=== PATIENT | male | born 1950 | race Caucasian/White ===

== ENCOUNTER 2018-08-31 11:30 | Outpatient (REF) | payer MEDICARE, SELFPAY ==
[2018-08-31 14:53] LABS: COMMENT (LAB VIEW ONLY) 100.55 mg/dL; Microalb ug/mg Crea 243.2 ug/mg Cr
== END 2018-08-31 11:50 ==
LOC: NCHCN 11:30
PROVIDERS: PCP Family Medicine; Visit Provider Family Medicine
DX: E11.8 Type 2 diabetes mellitus with unspecified complications (principal)
CPT/HCPCS: 82043; 82570

== ENCOUNTER 2019-04-28 00:17 | Outpatient (CLI) | payer MEDICARE, MEDICAID, SELFPAY ==
--- NOTE | 2019-04-28 15:33 | DI.US_ITS ---
SYMPTOM/DIAGNOSIS: SCREEN FOR CONDITION, Z13.9, DIZZINESS R42, NECK PAIN M54.2 CAROTID ULTRASOUND: Mild plaque is noted in the carotid bulb bilaterally and in the right internal carotid artery proximally. There is bilateral antegrade flow in the vertebrals. Velocity measurements suggest no evidence of significant carotid stenosis.
== END 2019-04-28 00:37 ==
PROVIDERS: PCP Family Medicine; Visit Provider Family Medicine
DX: R42 Dizziness and giddiness (principal); M54.2 Cervicalgia
CPT/HCPCS: 93880

== ENCOUNTER 2019-07-16 15:36 | Outpatient (REF) | payer MEDICARE, MEDICAID, SELFPAY ==
[2019-07-16 19:02] LABS: Anion Gap 9.9 mmol/L (3-11); BUN 16 mg/dL (7-18); CO2 26.1 mmol/L (21.0-32.0); CREATININE 0.95 mg/dL (0.70-1.30); Calcium 9.1 mg/dL (8.5-10.1); Chloride 105 mmol/L (98-107); Glucose 137 mg/dL (70-100); Magnesium 1.9 mg/dL (1.8-2.4); Sodium 141 mmol/L (136-145)
== END 2019-07-16 15:56 ==
LOC: NCHCN 15:36
PROVIDERS: PCP Family Medicine; Visit Provider Family Medicine
DX: I10 Essential (primary) hypertension (principal); E78.5 Hyperlipidemia, unspecified
CPT/HCPCS: 80048; 83735

== ENCOUNTER 2020-09-29 22:38 | Outpatient (REF) | payer MEDICARE, MEDICAID, SELFPAY ==
[2020-09-29 21:09] LABS: BUN 15 mg/dL (7-18); CREATININE 1.04 mg/dL (0.70-1.30); Calcium 9.6 mg/dL (8.5-10.1); Chloride 102 mmol/L (98-107); Glucose 140 mg/dL (74-106); Potassium 4.3 mmol/L (3.5-5.1); Sodium 140 mmol/L (136-145)
[2020-09-29 21:58] LABS: Hemoglobin A1C 8.5 % (<5.7)
== END 2020-09-29 22:58 ==
LOC: NCHCN 22:38
PROVIDERS: PCP Family Medicine; Visit Provider Family Medicine
DX: E11.9 Type 2 diabetes mellitus without complications (principal); I10 Essential (primary) hypertension
CPT/HCPCS: 80048; 83036

== ENCOUNTER 2021-05-07 01:36 | Outpatient (CLI) | payer MEDICARE, MEDICAID, SELFPAY ==
--- NOTE | 2021-05-07 14:52 | DI.MRI_ITS ---
Exam(s) MR LUMBAR SPINE WO EXAM: MR LUMBAR SPINE WO CLINICAL HISTORY: NEUROGENIC CLAUDICATION,M48.062,DIABETES,H/O CAUDA EQUINA SYNDROME,WORSENIN. TECHNIQUE: Multiplanar multisequence MRI of the Lumbar spine was performed. Compared to prior MRI sc an February 2013. Plain films April 2013 were also reviewed. COMPARISON: MR OUTSIDE CD - MR NEURO from 02/16/2013 MR OUTSIDE CD - MR NEURO from 02/16/2013 CR L_SPINE 4 VIEWS from 05/03/2013 CR L_SPINE 4 VIEWS from 05/03/2013 FINDINGS: Incidentally noted is a cyst off the medial cortex of the left kidney which measures 3.2 by 2.9 by 2. 8 cm Conus medullaris is at normal level. There is no evidence of conus mass nor subjacent clumping of in trathecal nerve roots to suggest arachnoiditis. However, there is severe spinal canal stenosis at L3 -4 level (see below). The distal thecal sac appears unremarkable.There is no evidence of Tarlov intr asacral cysts nor other significant findings within the sacral canal Bones:There is now severe edema throughout both the L3 and L4 vertebral bodies and what appears to be a nondisplaced horizontal fracture L3 vertebral body and multiple Schmorl's node invagination is in superior endplate of L4 and inferior endplate of L3. With respect to the individual levels... T12-L1: Normal disc height and signal. Anterior osseous lipping mild annular bulging. No prominent canal stenosis.. No significant foraminal stenosis. L1-2: Normal disc height. No significant disc herniation. No central canal stenosis. No foraminal stenosis. No significant facet arthropathy. L2-3: Normal disc height and signal. Broad annular bulging which flattens the anterior aspect of the shobha sac resulting in mild-moderate central spinal canal stenosis. Disc bulging extends into the exit ing left neural foramen but both neural foramen are widely patent due lack of significant disc height loss. There is also no significant facet arthropathy.. L3-4: Significant disc height loss. Modic type 1 extensive edema in both L2 and L3 vertebral bodies. Suggestion nondisplaced transverse fracture at the mid level of L3 vertebral body. Posteriorly th ere is broad annular bulging. There is severe central spinal canal stenosis at this level due to jose rt AP dimensions pedicles, broad annular bulging, and moderate degenerative changes in the facet join ts. Mild bilateral foraminal stenosis L4-5: Moderate-advanced disc height loss again noted.. Previous decompression surgery at this level. There is no disc herniation at this level. Central canal dimensions are with thin lower normal goodman its. Significant degenerative changes in the facet joints. However, no significant foraminal stenos is. L5-S1: Disc height loss at this level more prominent on the left side. There is mild annular bulgin g without a prominent disc protrusion. Mild central canal stenosis. There is moderate bilateral for aminal stenosis which is mostly related to short AP dimensions the pedicles and some degenerative fac et joint changes. There is no listhesis at level. Soft tissues: Cyst off the medial cortex of the left kidney. IMPRESSION: 1. Multilevel findings as described above. However, when compared to the prior MRI scan of February 3 the most significant new findings are at L3-4 level where there is advanced disc space narrowing an d prominent Modic type 1 sub endplate marrow edema changes both vertebral bodies. There is suggestio n of fracture a transverse fracture line in mid L3 level and Schmorl's node invagination is a on both sides of this disc space. There is severe central spinal canal stenosis at this level due to short AP dimensions of the pedicle s, broad annular bulging and degenerative changes in the facet joints. There also mild-moderate narr owing of both exiting neural foramina at this level. 2. Other level findings as described above. DATA REPOSITORY:
== END 2021-05-07 01:56 ==
PROVIDERS: PCP Family Medicine; Visit Provider Family Medicine
DX: M47.816 Spondylosis without myelopathy or radiculopathy, lumbar region (principal); M48.062 Spinal stenosis, lumbar region with neurogenic claudication; M51.26 Other intervertebral disc displacement, lumbar region; E11.9 Type 2 diabetes mellitus without complications; Z86.69 Personal history of other diseases of the nervous system and sense organs
CPT/HCPCS: 72148

== ENCOUNTER 2021-08-23 01:43 | Outpatient (CLI) | payer MEDICARE, MEDICAID, SELFPAY ==
--- NOTE | 2021-08-23 13:55 | DI.US_ITS ---
APPROVED REPORT EXAM: Comprehensive 2D, Doppler, and color-flow Echocardiogram Patient Location: Out-Patient Garment Supervisor: Lisandra Meza RDCS (AE) Indications: Dyspnea on exertion, Murmur, Diabetes Other Information Study Quality: Good Conclusion Normal left ventricular wall thickness and chamber size. Estimated ejection fraction is 60 to 65%. Wall motion is normal Normal right ventricular size and systolic function Both atria are normal in size Aortic valve is sclerotic and trileaflet without stenosis. There is trace aortic regurgitation Normal mitral valve with trace to mild regurgitation Normal tricuspid valve with trace to mild regurgitation. Estimated right ventricular systolic pressu re is 30 mmHg Mildly dilated ascending aorta measuring 3.52 cm Wall motion Left Ventricle The left ventricle is normal size. The left ventricular systolic function is normal. The left ventric ular ejection fraction is within the normal range. There is normal left ventricular wall thickness. T here is normal LV segmental wall motion. There is no ventricular septal defect visualized. LVEF is 60 -65%. Right Ventricle The right ventricle is normal size. The right ventricular systolic function is normal. The RVSP is 30 .2 mmHg. Atria The left atrium size is normal. The right atrium size is normal. The interatrial septum is intact wit h no evidence for an atrial septal defect. Aortic Valve Aortic valve is calcified. Aortic valve is trileaflet. No hemodynamically significant valvular aortic stenosis. Trace aortic regurgitation. Mitral Valve The mitral valve is normal in structure. No evidence of mitral valve stenosis. Trace to mild mitral r egurgitation. Tricuspid Valve The tricuspid valve is normal in structure. There is no tricuspid valve stenosis. Trace to mild tricu spid regurgitation. Pulmonic Valve The pulmonary valve is normal in structure. There is no pulmonic valvular stenosis. Trace pulmonic re gurgitation. Great Vessels The aortic root is normal in size. The ascending aorta is mildly dilated.3.52 cm Aortic arch is ziggy l in caliber. IVC is normal in size and collapses >50% with inspiration. Pericardium There is no pericardial effusion. 2D Dimensions IVSD d PLAX 1.02 cm M: 0.6-1.2 LV Vol A2C d MOD 125.0 mL LVPW d PLAX 1.03 cm M: 0.6 - 1.2 LV Vol A4C d MOD 115.8 mL LVID d PLAX 4.39 cm M: 4.2 - 5.8 LA vol/ BSA A2C s A-L 22.5 mL/m2 LVDs 2.95 cm M: 2.5 - 4.0 LA vol/ BSA A4C s A-L 22.3 mL/m2 Ao Root d 3.46 cm M: 3.1 - 3.7 LA Vol/ BSA Biplane s A-L 22.5 mL/m2 RA Area A4C 13.08 cm2 LA Area A4C s MOD 17.12 cm2 RA Vol/ BSA A4C s A-L 14.6 mL/m2 LA Area A2C s MOD 17.28 cm2 Ao Asc Diam d 3.52 cm M: 2.6 - 3.4 LV EF A4C MOD 58.0 % LV EF Teichholz 61.4 % LV EF A2C MOD 61.8 % LVEF (Rinaldi's) 60.74 % M: 52 - 72 LV EF Biplane MOD 60.7 % LV Volume 91.46 mL M: 62 - 150 SV 74.58 mL LV Volume Index 44.83 mL/m2 M: 34 - 74 SV Index 36.52 mL/m2 LV Vol Biplane MOD 122.8 mL FS 32.75 % M-Mode TAPSE 2.69 cm (M/F) >1.7 LV Diastology MV E' medial 0.125 (>0.07 m/s) E/A Ratio 0.9 LV E/e MED 7.20 (<14) MV E Vmax 0.90 (0.4-1.3 m/s) MV E' lateral 0.121 (>0.1 m/s) MV A Vmax 0.95 (0.4-1.3 m/s) LV E/e LAT 7.40 (<14) MV E/A Ratio 0.91 MV E/E' medial 7.23 MV E/E' lateral 7.45 Aortic Valve LVOT Area 3.76 cm2 AoV Area Vmax 2.40 cm2 LVOT Vmax 1.31 m/s AoV Area/ BSA (Vmax) 1.17 cm2/m2 LVOT Mean Jonathan. 0.77 m/s LEONARDO Mean Jonathan. 2.03 cm2 LVOT Peak Grad 6.9 mmHg LEONARDO Mean Jonathan. Index 0.99 cm2/m2 LVOT Mean Grad 3.0 mmHg LVOT VTI 0.283 m LVOT Diam s 2.15 cm AoV Vmax 2.06 m/s Velocity Ratio 0.63 AoV Mean Jonathan. 1.43 m/s AoV Peak Grad 17.0 mmHg LVOT SV 106.54 mL AoV Mean Grad 9.2 mmHg AoV VTI 0.426 m AoV Area VTI 2.50 cm2 AoV Area/ BSA (VTI) 1.22 cm/m2 Mitral Valve MV DT 220 (160-240 msec) MV PHT 64 msec MV Area PHT 3.45 cm2 MV VTI 0.350 m MV Area VTI 3.05 (4.0-6.0 cm2) Pulmonary Valve PV Vmax 1.38 (0.5-1.5 m/s) RVOT Peak Gr. 2.95 mmHg PV Peak Grad 7.6 mmHg RVOT Mean Gr. 1.50 mmHg PV Mean Grad 3.9 mmHg RVOT VTI 0.202 m PV VTI 0.291 m RVOT Vmax 0.86 m/s Tricuspid Valve TR Peak Grad 27.1 mmHg TR Vmax 2.61 m/s RA Pressure 3.00 mmHg RVSP (TR) 30.2 mmHg
== END 2021-08-23 02:03 ==
PROVIDERS: PCP Family Medicine; Visit Provider Family Medicine
DX: R06.09 Other forms of dyspnea (principal); R01.1 Cardiac murmur, unspecified; E11.9 Type 2 diabetes mellitus without complications; I08.1 Rheumatic disorders of both mitral and tricuspid valves; I77.810 Thoracic aortic ectasia
CPT/HCPCS: 93306

== ENCOUNTER 2021-12-28 17:47 | Outpatient (REF) | payer MEDICARE, MEDICAID, SELFPAY ==
[2021-12-28 20:28] LABS: Anion Gap 10.7 mmol/L (3-11); BUN 21 mg/dL (7-18); CO2 25.3 mmol/L (21.0-32.0); Calcium 9.5 mg/dL (8.5-10.1); Calculated LDL 127 mg/dL (<100); Chloride 103 mmol/L (98-107); Cholesterol 211 mg/dL (<200); Glucose 133 mg/dL (74-106); HDL Cholesterol 51 mg/dL (40-60); Magnesium 1.8 mg/dL (1.8-2.4); Sodium 139 mmol/L (136-145); Triglyceride 165 mg/dL (<150)
== END 2021-12-28 17:48 | disposition home or self-care (01) ==
LOC: LBN 17:47
PROVIDERS: PCP Family Medicine; Visit Provider Family Medicine
DX: I10 Essential (primary) hypertension (principal); E83.42 Hypomagnesemia; E78.5 Hyperlipidemia, unspecified
CPT/HCPCS: 80048; 80061; 83735

== ENCOUNTER → 2022-01-17 12:59 | Outpatient (BNVA) | payer MEDICARE, MEDICAID, SELFPAY | PROVIDERS: PCP Family Medicine; Referring Provider Nurse Practitioner; Visit Provider Nurse Practitioner Adult Health | DX: R41.3 Other amnesia (principal); E11.9 Type 2 diabetes mellitus without complications; I10 Essential (primary) hypertension | CPT/HCPCS: 99204 ==

== ENCOUNTER 2022-05-27 03:41 | Outpatient (CLI) | payer MEDICARE, MEDICAID, SELFPAY ==
--- NOTE | 2022-05-27 13:00 | NS.NUTBLAN_ITS ---
John was referred for nutritional counseling for IBS with diarrhea. PMH: DM2, HTN Labs: A1C: 7.8% DM meds: 30 units lantus BID, 20 units novolog with meals 66 inches 215 lbs BMI: 34 Diet Recall: eggs and toast, hot dogs, meat and vegetables John reports that he is very sensitive to many medication and he has had a lot of diarrhea in the past. Did not tolerate metformin. He is not interested in modifying his diet to decrease diarrhea at this time as his main concern is glycemic control in preparation for back surgery. He is willing to alter his meals for better glycemic management. John lives with his girlfriend and has a lot of financial/housing stressors at this time. He checks his blood sugars a couple times per day and gets very stressed when blood sugars get high. He does not correct for elevated blood sugars. He suffers from back pain, insomnia and anxiety. Session today focused on meal adjustment for optimal carb counting. John also wanted to talk about continuous glucose monitors as his friend has one. We reviewed pros/cons of a continuous glucose monitor. He feels that it will help him make better meal choices and would like to try one. [employer] is in agreement with benefit of CGM for John. At this time, diet modification for diarrhea was not a priority for him. A CGM will help John make better meal choices, keep tighter glycemic control and help lower his anxiety about blood sugar excursions. This in turn will help him prepare for back surgery as walking/moving is very painful for him. Plan: 1. Recommend Justine 2 Continuous Glucose Monitor and [place]- will be covered by Medicare as takes insulin > 4 times daily and A1C is not at target 2. Follow up once receive CGM for placement and education by underwriter 3. Will be in contact via phone in next 2 weeks.
== END 2022-05-27 03:42 | disposition home or self-care (01) ==
LOC: DS 03:41
PROVIDERS: PCP Family Medicine; Visit Provider Dietitian, Registered
DX: K58.0 Irritable bowel syndrome with diarrhea (principal); E11.9 Type 2 diabetes mellitus without complications; I10 Essential (primary) hypertension; Z79.4 Long term (current) use of insulin; Z71.3 Dietary counseling and surveillance
CPT/HCPCS: 97802

== ENCOUNTER 2023-10-20 13:46 | Outpatient (REF) | payer MEDICARE, MEDICAID, SELFPAY ==
[2023-10-20 15:15] LABS: ALT 60 U/L (16-63); AST 29 U/L (15-37); Albumin 3.9 g/dL (3.4-5.0); Alkaline Phosphatase 86 U/L (46-116); Anion Gap 10.7 mmol/L (3-11); BUN 14 mg/dL (7-18); Bilirubin, Total 0.5 mg/dL (0.2-1.0); CO2 27.3 mmol/L (21.0-32.0); CREATININE 0.9 mg/dL (0.70-1.30); Calcium 9.8 mg/dL (8.5-10.1); Chloride 102 mmol/L (98-107); Estimated GFR 91.31 (mL/min/1.73m2); Glucose 93 mg/dL (74-106); Potassium 3.6 mmol/L (3.5-5.1); Sodium 140 mmol/L (136-145); Total Protein 7.4 g/dL (6.4-8.2)
== END 2023-10-20 13:47 | disposition home or self-care (01) ==
LOC: NCHCN 13:46
PROVIDERS: PCP Family Medicine; Visit Provider Family Medicine
DX: E11.9 Type 2 diabetes mellitus without complications (principal)
CPT/HCPCS: 80053

== ENCOUNTER 2024-07-01 12:25 | Outpatient (REF) | payer MEDICARE, SELFPAY ==
[2024-07-01 18:32] LABS: COMMENT (LAB VIEW ONLY) 115.36 mg/dL
[2024-07-01 18:46] LABS: Microalb ug/mg Crea 502.1 ug/mg Cr
== END 2024-07-01 12:26 | disposition home or self-care (01) ==
LOC: NCHCN 12:25
PROVIDERS: PCP Family Medicine; Visit Provider Student in an Organized Health Care Education/Training Program
DX: E11.9 Type 2 diabetes mellitus without complications (principal)
CPT/HCPCS: 82043; 82570

== ENCOUNTER 2025-09-04 15:09 | Emergency (ER) | payer MEDICARE, SELFPAY ==
[2025-09-04] VITALS (22 sets, daily range): BP systolic 191–233; BP diastolic 87–151; PULSE 70–92; RESP 12–25; TEMP 37.4; O2SAT 95–100
--- NOTE | 2025-09-04 15:15 | RT.EKG_ITS ---
APPROVED REPORT Exam: Resting ECG Reason for Exam: Cannot Walk Patient Location: E HR:75 bpm ECG Measurements Heart Rate 75 AXIS UT 197 P -3 QRSd 156 QRS -55 QT 434 T -23 QTc 485 Conclusion Sinus rhythm, rate 75 No interval abnormalities RBBB and LAFB, no priors available for comparison. No STEMI
--- NOTE | 2025-09-04 15:15 | DI.CT_ITS ---
Exam(s) CT HEAD WO EXAM: CT HEAD WO CLINICAL HISTORY: L > R leg weakness. TECHNIQUE: Imaging Protocol: Axial computed tomography images with coronal and sagittal reformatted images were created and reviewed COMPARISON: No exams were available for comparison FINDINGS: Ventricles and Extra axial spaces: Normal in size and morphology for the patient's age. Hemorrhage: None. Cerebral parenchyma: No evidence of acute infarct or mass. Mild atrophy consistent with the patient's age. Midline shift: None. Brainstem/Cerebellum: Normal. Bones: No skull or facial fractures. Visualized Paranasal sinuses:Clear. Mastoids: Clear. Soft Tissues: Unremarkable. ORBITS: Unremarkable. PITUITARY: Not enlarged. IMPRESSION: No acute intracranial process. The preliminary [facility] report was reviewed. RADIATION DOSE DELIVERED: Total DLP DATA REPOSITORY: All CT scans at this facility are submitted to the National Radiology Data Registry (NRDR) Dose Index Registry (DIR) with the [employer] (ACR). RADIATION OPTIMIZATION: All CT scans at this facility use at least one of these dose optimization techniques: automated exposure control; mA and/or kV adjustment per patient size (includes targeted exams where dose is matched to clinical indication); or iterative reconstruction.
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
[2025-09-04] MEDS: Lactated Ringers 1,000 ML 1000 ML IV (15:27)
[2025-09-04 15:30] LABS: Abs Immature Grans 0.06 10^3/uL (0.0-0.06); BE (Venous) -1 mmol/L (-2-3); HCO3 (Venous) 24 mmol/L (23-28); HCT 44.6 % (40.0-50.0); HGB 15.6 g/dL (13.5-17.5); Immature Grans % 0.5 %; MCH 31.0 pg (27.0-33.0); MCHC 35.0 % (32.0-36.0); MCV 89 fL (80-95); MPV 10.2 fL (8.0-11.0); O2 Sat (Venous) 48 %; Platelet Count 162 10^3/uL (130-400); RBC 5.04 10^6/uL (4.36-5.78); RDW 12.8 % (11.8-14.1); RDW-SD 41.6 fL; TCO2 (Venous) 22 mmol/L (24-29); WBC 12.71 10^3/uL (4.4-10.8); pCO2 (Venous) 42 mmHg (41-51); pO2 (Venous) 26 mmHg
[2025-09-04 15:43] LABS: INR 1.6 (0.9-1.1); Prothrombin Time 15.3 sec (9.1-11.1)
--- NOTE | 2025-09-04 15:48 | DI.[facility]AD_ITS ---
PROCEDURE INFORMATION: Exam: CT Head Without Contrast Exam date and time: 09/04/2025 3:35 PM Age: 75 years old Clinical indication: Weakness, extremity; Bilateral; L > R leg weakness TECHNIQUE: Imaging protocol: Computed tomography of the head without contrast. COMPARISON: No relevant prior studies available. FINDINGS: Brain: Age related diffuse parenchymal volume loss. 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 Encephalomalacia in the right parietal lobe. No recent infarct, intracranial bleed or mass effect. Cerebral ventricles: Ex vacuo dilatation of the ventricles. Paranasal sinuses: Visualized sinuses are unremarkable. No fluid levels. Mastoid air cells: Visualized mastoid air cells are well aerated. Bones: Unremarkable. No acute fracture. Soft tissues: Unremarkable. IMPRESSION: No large territorial infarct or intracranial bleed. Dictated and Authenticated by: Doug Aponte MD. Orderin [facility] Gore MD
[2025-09-04 15:59] LABS: Glucose >=1000 mg/dL (Negative)
[2025-09-04 16:01] LABS: ALT 28 U/L (16-63); AST 15 U/L (15-37); Albumin 3.4 g/dL (3.4-5.0); Alkaline Phosphatase 83 U/L (46-116); Anion Gap 11.8 mmol/L (3-11); BUN 20 mg/dL (7-18); Bilirubin, Total 2.0 mg/dL (0.2-1.0); CO2 25.2 mmol/L (21.0-32.0); Calcium 9.7 mg/dL (8.5-10.1); Chloride 98 mmol/L (98-107); Estimated GFR 58.01 (mL/min/1.73m2); Glucose 408 mg/dL (74-106); Magnesium 2.1 mg/dL (1.8-2.4); Potassium 4.1 mmol/L (3.5-5.1); Sodium 135 mmol/L (136-145); Total Protein 7.5 g/dL (6.4-8.2); Troponin I 26 ng/L (<or=76)
[2025-09-04 16:11] LABS: WBC >50 HPF (0-5)
[2025-09-04 16:12] LABS: C & S Indicated? Yes; RBC 0-2 HPF (0-2)
--- NOTE | 2025-09-04 16:25 | CMACTNOTE_ITS ---
Date of service: 09/04/25 Time of Service: 16:25 Care Management Activity Note Activity Note Text Activity Note Text: John presented to the ER via EMS with ambulatory dysfunction. He reportedly woke up 4 days ago unable to walk and he denies any injury preceding the onset. He is accompanied by his significant other whom also arrived via EMS, as she reportedly has dementia and is unable to care for herself at baseline. Per Eric, they need to stay together- where I go, she goes. He expressed feeling poorly supported in the community, with limited family and social connections. John reports having a son whom lives locally and works as a treater helper, un fortunately he is just too busy to help and is working right now. John has a twin brother whom lives locally but is is reportedly not available as he was recently diagnosed with cancer. While CM was in the room, an individual named Hedy Beck called asking for an update. John identified the caller as his ex- girlfriend, noting that she and Kylie get along well but unable to help due to her own medical issues. John stated that he came to the hospital to find out what is causing his mobility issues and verbalized that he is not interested in remaining here overnight. CM attempted to find what his plan would be if he was not felt to be medically able to discharge and he jokingly implied that he would grow his legs 2 feet longer and play football for the [employer]. He is interested in getting additional support at the home, noting that his partner has caregiver support in place through [facility] and is pretty well set up with the [employer]. He also states that he's having issues with some of his appliances at home and is hoping he can find some funding to replace them. John is not medically cleared for discharge at this time, and his partner appears to be comfortable as she sits in a recliner in his treatment room. CM anticipates that finding viable transpiration to accommodate both the patient and his significant other will be challenging, given their current mobility limitations. However, the patient was clear and direct in stating that this will not be a problem, as he is planning to have his brother pick them up when he's ready. CM discussed this case with nursing and the provider and new home health services will likely be ordered if he discharges home. CM recommended [employer] for support with terminal carman planning and community resources.
[2025-09-04] MEDS: cefTRIAXone 1 GM/50 ML BAG IVPB (16:27)
[2025-09-04] MEDS: amLODIPine 10 MG TAB PO (16:27)
[2025-09-04 16:49] LABS: Troponin I 30 ng/L (<or=76)
--- NOTE | 2025-09-06 09:31 | NUR.NOTE ---
Accessed chart to determine antibiotic for urine culture.Result given to provider. Nursing Note:
--- NOTE | 2025-09-06 14:58 | NUR.NOTE ---
Nursing Note: The disease case manager at [facility] called. She stated that this patient was here on the and prescribed an antibiotic. She said that they have been unable to locate where it was sent and asked me to look into it. It was found the the prescription was printed and then given to the patient to bring to the pharmacy. The disease case manager said that he likely lost the prescription and asked if there was a way to call it in to [facility]. Dr Skinner prescribed Cephalexin 500 mg QID x 5 days. I called the prescription, per their request, into [facility].
== END 2025-09-04 18:02 | disposition home or self-care (01) ==
PROVIDERS: Emergency Provider Emergency Medicine; PCP Family Medicine
DX: E11.10 Type 2 diabetes mellitus with ketoacidosis without coma (principal); N39.0 Urinary tract infection, site not specified; I10 Essential (primary) hypertension; R79.89 Other specified abnormal findings of blood chemistry
CPT/HCPCS: 99284; 99285; 36415; 36416; 82962; 80053; 82805; 87077; 93005; 96361; 96365; 70450; 81003; 81015; 83605; 83735; 84484; 85025; 85610; 87086; 87186; 93010; J0696